=== PATIENT | female | born 1995 | race Caucasian/White ===

== ENCOUNTER 2016-11-02 09:27 | Inpatient (IN) | payer OTHER ==
[~2016-11-02] VITALS: Ht 170.2 cm; Wt 56.7 kg
--- NOTE | 2016-11-03 20:50 | NUR ---
Pre-admission assessment Pre-admission assessment done at intake by Perri MARSH. Pt reported the following substance use: 1) Heroin-per pt, she started using at age 14 via smoke and shifted to using via IV by age 16. Currently, for the past 4 months, pt reports using 1.5-2 gms via IV daily. Last use was 11/03/2016 at 1700. 2) Methadone-per pt, she started using 9 days ago via PO daily for 8 days. Last use was 11/02/2016 at 0800. 3) Crystal Meth-per pt, she started using 2 weeks ago via smoke and IV. Pt reports using 0.5-1 gm via smoke and IV daily. Last use was 11/02/2016 "all day". 4) Xanax-per pt, she started using at age 16 and has been using intermittently via PO. Pt reports last use of Xanax 4 mg PO on 11/02/2016 1300. Previous to this, pt reports that last use was "a month ago." Vital signs taken and as follows: MO=356/71, P=72, O2 sat on RA=99%, RR=16, T=98.1. Pt noted to have steady gait and is AAOx4. No SOB noted, not in respi distress. Pt with 2 home medications accounted for. Pt verbalized instructions and teachings regarding disposal of narcotic and other controlled home meds, unit protocols such as taking of vital signs Q4H and handling and disposal of contraband.
[2016-11-03 21:11] LABS: *URINE HCG, QUAL NEGATIVE (NEGATIVE)
[2016-11-03 21:20] LABS: *AMPHETAMINE, URINE NEGATIVE (NEGATIVE); *BARBITURATE, URINE NEGATIVE (NEGATIVE); *CANNABINOID, URINE NEGATIVE (NEGATIVE); *COCCAINE, URINE NEGATIVE (NEGATIVE); *OPIATE, URINE POSITIVE (NEGATIVE); *PHENCYCLIDINE SCREEN,URINE NEGATIVE (NEGATIVE)
--- NOTE | 2016-11-03 21:30 | NUR ---
ADMISSION Patient is a 21-year old, female, admitted and escorted by [facility] at 2120 to unit. Patient lives with a friend in [place] prior to coming to [facility]. Skin check done, no open skin noted. No edema noted. Pt is ambulatory with steady gait. Pt stands 5'7" and weighs 125 pounds per standing scale. Vital signs are as follows: BP-108/68, T-97.9, P-68, RR-18 and SPO2 on RA=99%. Patient is AAOx4 and with no anxiety noted at this time. Lung sounds clear bilaterally upon auscultation. No cough noted and bowel sounds are present on all quadrants. PERRLA and pupils are 1 mm upon visual check. Pt reports NKA, on Regular Diet and is Full Code. Pt denies any seizure history. Per pt, withdrawal symptoms are nausea and vomiting, insomnia, sweats, chills, tremors, hot flushes, anxiety, flushed skin, restless legs and goosebumps. Substance history as follows: 1) Heroin-per pt, she started using at age 14 via smoke and shifted to using via IV by age 16. Currently, for the past 4 months, pt reports using 1.5-2 gms via IV daily. Last use was 11/03/2016 at 1700. 2) Methadone-per pt, she started using 9 days ago via PO daily for 8 days. Last use was 11/02/2016 at 0800. 3) Crystal Meth-per pt, she started using 2 weeks ago via smoke and IV. Pt reports using 0.5-1 gm via smoke and IV daily. Last use was 11/02/2016 "all day". 4) Xanax-per pt, she started using at age 16 and has been using intermittently via PO. Pt reports last use of Xanax 4 mg PO on 11/02/2016 1300. Previous to this, pt reports that last use was "a month ago." Patient verbalized the she does not drink alcohol. Longest sobriety per pt is 5 months, from December to June 2016. 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 No Suicidal Ideation nor Homicidal Ideation reported. Per pt, PCP is Dr. Maxwell. Home medications mentioned were reconciled. Treatment history as follows: 1) Promises 08/2016-30 days 2) Unable to recall name in [facility]- 2014 3) Unable to recall name is [place]- 2012 Patient reports smoking cigarettes about 1 pack daily. Oriented patient to room and instructed with the use of the call light, placed within reach. Fall, universal, seizure and safety precautions implemented. Kept patient warm, dry and comfortable. No c/o significant pain at this time All needs met. Information relayed to Dr. Waite. Patient refused Flu and Pneumonia vaccines despite explanation of risks and benefits. COWS=11, CIWA=12. Will continue to monitor.
[2016-11-03 22:00] VITALS: BP 108/68
[2016-11-03] MEDS ORDERED: IBUPROFEN 400 MG TABLET PO PRN (22:30)
[2016-11-03] MEDS ORDERED: IBUPROFEN 400 MG TABLET ONE (22:41)
--- NOTE | 2016-11-03 23:00 | NUR ---
RN note PRN Motrin Pt c/o headache=5/10. Administered Motrin 400 mg PO as ordered. Will reassess.
[2016-11-04] VITALS: BP 103/60
[2016-11-04] MEDS ORDERED: MAGNESIUM HYDROXIDE 30 ML LIQUID UDC PO PRN
[2016-11-04] MEDS ORDERED: ACETAMINOPHEN 325 MG TABLET PO PRN
[2016-11-04] MEDS ORDERED: ONDANSETRON ODT 4 MG TAB.RAPDIS SL PRN
[2016-11-04] MEDS ORDERED: diphenhydrAMINE 50 MG CAPSULE PO PRN
[2016-11-04] MEDS ORDERED: HYDROXYZINE PAMOATE 25 MG CAPSULE PO PRN
[2016-11-04] MEDS ORDERED: LOPERAMIDE HCL 2 MG CAPSULE PO PRN ×2
[2016-11-04] MEDS ORDERED: LORAZEPAM 1 MG TABLET PO PRN
[2016-11-04] MEDS ORDERED: DICYCLOMINE HCL 20 MG TABLET PO PRN
[2016-11-04] MEDS ORDERED: PROMETHAZINE HCL 25 MG/1 ML VIAL IM PRN
[2016-11-04] MEDS ORDERED: MIRALAX 17 GM POWD.PACK PO PRN
[2016-11-04] MEDS ORDERED: MAG HYDROX/AL HYDROX/SIMETH 30 ML LIQUID UDC PO PRN
[2016-11-04] MEDS ORDERED: IBUPROFEN 400 MG TABLET PO PRN
[2016-11-04] MEDS ORDERED: CLONIDINE HCL 0.1 MG TABLET PO PRN
[2016-11-04] MEDS ORDERED: MAGNESIUM HYDROXIDE 30 ML LIQUID UDC ONE (00:07)
[2016-11-04] MEDS ORDERED: LORAZEPAM 1 MG TABLET ONE (00:07)
[2016-11-04] MEDS ORDERED: METHOCARBAMOL 750 MG TABLET ONE (00:07)
[2016-11-04] MEDS: METHOCARBAMOL 750 MG TABLET PO PRN ×2 (00:11→20:53)
--- NOTE | 2016-11-04 00:13 | NUR ---
RN note PRN Ativan, Robaxin and MOM Pt c/o feeling anxious, with irritability and tremors noted. CIWA=12. Pulse=92, DA=890/85. Administered Ativan 2 mg PO as ordered. Pt c/o generalized muscle pain=6/10. Administered Robaxin 750 mg PO. Pt c/o constipation. Last BM was 11/01/2016. Administered MOM 30 ml PO. Will monitor and reassess.
--- NOTE | 2016-11-04 00:16 | NUR ---
RN note reassess Pt verbalized headache=2/10. Motrin effective.
--- NOTE | 2016-11-04 01:15 | NUR ---
RN note Pt asleep on bed, no facial grimacing nor SOB noted. No tremors noted at this time.
[2016-11-04 04:00] VITALS: BP 120/64
[2016-11-04] MEDS ORDERED: [UNRECOGNIZED DRUG - CODE] PO (06:09)
[2016-11-04] MEDS ORDERED: [UNRECOGNIZED DRUG - CODE] PO (06:09)
--- NOTE | 2016-11-04 07:04 | NUR ---
End of Shift Patient is a 21-year old, female, admitted for Heroin, Methadone and Crystal Methamphetamine Dependence. Pt reports PMHx of Anxiety, Heroin Overdose in June of 2016, HPV (2012)-dormant per last Pap Smear in July of 2016 and Low Back Pain d/t fracture from Gymnastics when pt was 14 yrs old. Pt reports NKA, on Regular Diet and is Full Code. Pt denies any seizure history. On PRN meds. Dr. Lorenz to re-evaluate pt this morning. Pt is AAOx4, no anxiety nor SOB noted at this time. Pt is ambulatory with steady gait. No open skin noted. Fall, universal and safety prec in place. Call light within reach. Kept pt warm, dry and comfortable. All needs met. Latest COWS=5, CIWA=4, slept for 4 hours. Endorsed to AM shift nurse for continuity of care.
--- NOTE | 2016-11-04 07:10 | NUR ---
Start Of Shift Patient is a 21 year old, female, admitted for Heroin, Methadone and Crystal Methamphetamine Dependence. Pt is full code regular diet continues on fall and seizure precautions denies any food or drug allergies. Pt reports PMHx of Anxiety, Heroin Overdose in June of 2016, HPV (2012). Pt is not on a taper but is on PRN medications in case of withdrawal symptoms. Encouraged fluids to facilitate Detox. Pt reported feeling constipated, and stated that she did not have a good night sleep last night. Pt recieved PRN MOM Robaxin, and Ativan 2 mg last night, medication was effective. Her latest COWS=5, CIWA=4, pt slept for 4 hours. All safety measures in place call light within reach will continue to monitor and provide care.
[2016-11-04] MEDS ORDERED: ONDANSETRON 4 MG/2 ML VIAL IM PRN (07:15)
[2016-11-04 08:00] VITALS: BP 118/68
[2016-11-04] MEDS ORDERED: TUBERCULIN,PURIF.PROT.DERIV. 5 TU/0.1 ML TEST ID ONE (09:00)
[2016-11-04] MEDS: MULTIVITAMINS,THERAPEUTIC TABLET PO SCH (09:00)
--- NOTE | 2016-11-04 10:07 | NUR ---
PRN MEDICATION Pt c/o Anxiety presented with agitation and restlessness pt also complained of constipation requested something for relief, non-pharmacological techniques interventions provided x3 and were not effective. PRN Clonidine 0.1mg and Miralax administered PO, educated pt about s/e of medication and when to contact nurse. all needs met, all safety measures in place, will continue to monitor.
--- NOTE | 2016-11-04 11:07 | NUR ---
PRN REASSESSMENT Medication effective Pt reported decreased anxiety, pt has not had a bowel movement yet, will continue to monitor and provide care
[2016-11-04] MEDS ORDERED: LORAZEPAM 1 MG TABLET PO ONE ×2 (11:30→16:45)
[2016-11-04 12:00] VITALS: BP 96/66
[2016-11-04] MEDS ORDERED: [UNRECOGNIZED DRUG - OTHER] PO PRN (13:15)
[2016-11-04] MEDS ORDERED: Medication Not On Formulary EA (Doxycycline Hyclate 100 MG) PO SCH (13:15)
[2016-11-04] MEDS: DOXYCYCLINE HYCLATE 100 MG TABLET PO SCH ×2 (13:30→20:36)
[2016-11-04 16:00] VITALS: BP 109/60
--- NOTE | 2016-11-04 16:37 | NUR ---
MD COMMUNICATION Pt c/o severe anxiety CIWA score of 8 pt presented with chills, sweats, anxiety, agitation and tremors, MD gave order for a onetime Ativan 2mg, all needs met will carryout order.
[2016-11-04] MEDS ORDERED: BUPRENORPHINE HCL 2 MG TAB.SUBL SL PRN (19:30)
--- NOTE | 2016-11-04 19:35 | NUR ---
End Of Shift Patient is a 21 year old, female, admitted for Heroin, Methadone and Crystal Methamphetamine Dependence. Pt is full code regular diet continues on fall and seizure precautions denies any food or drug allergies. Pt is not on a taper but is on PRN medications in case of withdrawal symptoms. Upon assessment patient presented with dilated pupils, stomach cramps, mild anxiety, agitation, sweats with her last COWS score being a 8 @1600. Pt was given PRN Clonidine and Miralax for anxiety and constipation, medication was effective. Pt received a onetime dose of Ativan 2mg X2 per MD order. Patient encouraged adequate PO fluid intake as tolerated. Detox medication effective at reducing withdrawal symptoms. Patient encouraged to attend group therapies/sessions to learn new coping skills to recent relapse, noted attending and participating in groups and activities, patient denies SI/HI. Pt ate all of her meals his total fluid intake was 2350 with 3 void and no bowel movement, Safety measures in place. Call light kept within reach. Patient endorsed to night auditor nurse, all pertinent information discussed with night auditor nurse.
[2016-11-04 20:00] VITALS: BP 109/67
--- NOTE | 2016-11-04 20:00 | NUR ---
START OF SHIFT NOTE RECEIVED PATIENT IN ROOM. PATIENT IN BED, REPORTS NOT FEELING GOOD. PATIENT STATES SHE'S ANXIOUS, SWEATING, TEARY EYES, ABDOMINAL CRAMPING , NAUSEA BUT NO EMESIS , BACK PAIN 7/10, STUFFY NOSE, HOT AND COLD. NO APPETITE AND DID NOT GO TO GROUPS. RECEIVED REPORT FROM DAY SHIFT NURSE. PATIENT IS A 21 YEAR OLD FEMALE, ADMITTED FOR HEROIN AND METHADONE DEPENDENCE. PATIENT NOT YET ON TAPER. PATIENT IS FULL CODE, REGULAR DIET AND NO KNOWN ALLERGY. PATIENT REPORTS PMH OF LOWER BACK PAIN -D/T FRACTURE (14 YEARS OLD) ,HPV (2012)-DORMANT FROM LAST PAP SMEAR (07/2016(, ANXIETY AND HEROIN OVERDOSE (06/2016). PATIENT ON ANTIBIOTIC FOR ACNE, ENCOURAGE FLUIDS . PATIENT IS ON FALL PRECAUTION. PATIENT WAS GIVEN ONE TIME ATIVAN X 2 DOSES , PRN CLONIDINE AND MIRALAX. LAST COWS 8. SAFETY MEASURES IN PLACE . CALL LIGHT IN REACH. WILL CONTINUE TO MONITOR.
--- NOTE | 2016-11-04 20:36 | NUR ---
ONE TIME SUBUTEX ADMINISTRATION PATIENT REPORTS ANXIETY, SWEATING, STUFFY NOSE, ABDOMINAL CRAMPING, TEART EYES, HOT AND COLD AND NAUSEA BUT NO EMESIS. COWS 13. DR. VAN WAS NOTIFIED AND MADE NEW ORDER FOR ONE TIME SUBUTEX. WILL START SUBUTEX TAPER TOMORROW. PRN SUBUTEX GIVEN. WILL MONITOR FOR EFFECTIVENESS
--- NOTE | 2016-11-04 20:53 | NUR ---
PRN ROBAXIN ADMINISTRATION PATIENT C/O GENERALIZED BODY ACHES. PRN ROBAXIN GIVEN. WILL MONITOR FOR EFFECTIVENESS
--- NOTE | 2016-11-04 21:06 | NUR ---
GEORGETTEN SUBUTEX RE-ASSESSMENT PATIENT STATES SUBUTEX IS HELPFUL . ANXIETY , SWEATING ,SUBSIDED. COWS ASSESSMENT 4 AT THIS TIME. WILL CONTINUE TO MONITOR. Addendum: 11/05/16 at 0601 by DARREN TAMEZ LVN CLARIFICATION: ONE TIME SUBUTEX RE-ASSESSMENT
--- NOTE | 2016-11-04 21:53 | NUR ---
PRN ROBAXIN RE-ASSESSMENT PATIENT STATES ROBAXIN HELPFUL. PAIN LEVEL 2/10, TOLERABLE. WILL CONTINUE TO MONITOR
[2016-11-05 03:00] VITALS: BP 99/60
[2016-11-05 04:00] VITALS: BP 96/55
--- NOTE | 2016-11-05 07:36 | NUR ---
END OF SHIFT NOTE MONITORED PATIENT THROUGHOUT THE NIGHT. PATIENT STABLE . PATIENT REPORTED NOT FEELING GOOD. PATIENT STATES SHE'S ANXIOUS, SWEATING, TEARY EYES, ABDOMINAL CRAMPING , NAUSEA BUT NO EMESIS , BACK PAIN 7/10, STUFFY NOSE, HOT AND COLD. DURING SHIFT. NO APPETITE AND DID NOT GO TO GROUPS. PATIENT IS HERE FOR HEROIN AND METHADONE DEPENDENCE. PATIENT ON ANTIBIOTIC FOR ACNE, ENCOURAGE FLUIDS . PATIENT WAS GIVEN ONE TIME SUBUTEX AT 2035 , COWS 13, EFFECTIVE COWS DOWN TO 4. PRN ROBAXIN GIVEN AT 2052, EFFECTIVE. PATIENT WILL BE STARTED ON 5 DAYS SUBUTEX TAPER TODAY. PATIENT IS ON FALL PRECAUTION. SAFETY MEASURES IN PLACE . CALL LIGHT IN REACH. WILL CONTINUE TO MONITOR. SLEPT 6 HOURS. FLUID INTAKE 437 ML. VOIDED X 0. NO BM. LAST COWS 1.
--- NOTE | 2016-11-05 07:50 | NUR ---
Start Of Shift Patient is a 21 year old, female, admitted for Heroin, Methadone and Crystal Methamphetamine Dependence. Pt is full code regular diet continues on fall and seizure precautions denies any food or drug allergies. Pt began her 5 day Subutex taper today. Encouraged fluids to facilitate Detox. Pt received PRN Robaxin and a onetime dose of Subutex, all medications were effective per third shift lieutenant nurse. Encouraged fluids to facilitate with detox. Pt A&Ox4 with even unlabored respirations at 18. Pt reported feeling fatigued this morning c/o sweats and minor anxiety. Pts Last COWS=1 at 04:00. Pt slept a total of 6 hours at night. All safety measures in place call light within reach will continue to monitor and provide care.
[2016-11-05 08:00] VITALS: BP 103/64
[2016-11-05] MEDS ORDERED: 5 DAY TAPER BUPRENORPHINE -SERENITY PROTOCOL SL PRN (09:00)
[2016-11-05] MEDS: MULTIVITAMINS,THERAPEUTIC TABLET PO SCH (09:01)
[2016-11-05] MEDS: DOXYCYCLINE HYCLATE 100 MG TABLET PO SCH ×2 (09:01→21:01)
[2016-11-05] MEDS: BUPRENORPHINE HCL 2 MG TAB.SUBL SL SCH ×4 (09:01→21:03)
[2016-11-05] MEDS: METHOCARBAMOL 750 MG TABLET PO PRN ×2 (11:13→21:02)
--- NOTE | 2016-11-05 11:13 | NUR ---
PRN MEDICATION Pt c/o Anxiety presented with agitation and restlessness pt also complained of generalized pain rating it 4/10 requested something for relief, non-pharmacological techniques interventions provided x3 and were not effective. PRN Robaxin 750mg administered PO, educated pt about s/e of medication and when to contact nurse. all needs met, all safety measures in place, will continue to monitor.
[2016-11-05 12:00] VITALS: BP 115/77
--- NOTE | 2016-11-05 12:13 | NUR ---
PRN REASSESSMENT Upon reassessment medication noted to be effective pt reported a decrease in pain to 1/10. Instructed pt to contact nurse if pain reoccurred. All needs met, all safety measures in place will continue to monitor.
[2016-11-05 16:00] VITALS: BP 112/61
--- NOTE | 2016-11-05 19:21 | NUR ---
End Of Shift Patient is a 21 year old, female, admitted for Heroin, Methadone and Crystal Methamphetamine Dependence. Pt is full code regular diet continues on fall and seizure precautions denies any food or drug allergies. Pt is on a 5 day Subutex taper tolerating well. Upon assessment patient presented with dilated pupils, stomach cramps, mild anxiety, agitation, sweats with her last COWS score being a 5 @1600. Pt was given PRN Robaxin 750mg medication was effective. Patient encouraged adequate PO fluid intake as tolerated. Detox medication effective at reducing withdrawal symptoms. Patient encouraged to attend group therapies/sessions to learn new coping skills to recent relapse, noted attending and participating in groups and activities, patient denies SI/HI. Pt ate all of her meals his total fluid intake was 2855 with 4 void and 1 bowel movement, Safety measures in place. Call light kept within reach. Patient endorsed to field sales trainer nurse, all pertinent information discussed with field sales trainer nurse.
[2016-11-05 20:00] VITALS: BP 114/66
--- NOTE | 2016-11-05 20:00 | NUR ---
START OF SHIFT NOTE PATIENT IN HER ROOM. PATIENT ALERT AND ORIENTED X 4. RESPIRATION EVEN UNLABORED. PATIENT REPORTS ANXIETY, NAUSEA AND VOMITING X 1. SWEATING, STUFFY NOSE, ABDOMINAL CRAMPING AND NO APPETITE. PATIENT C/O 8/10 GENERALIZED BODY ACHES , PATIENT REFUSED ZOFRAN . PATIENT EDUCATE ON RISKS/BENEFITS. RECEIVED REPORT FROM DAY SHIFT NURSE. PATIENT IS A 21 YEAR OLD FEMALE, ADMITTED FOR HEROIN.METHADONE DEPENDENCE. PATIENT IS ON 1ST DAY OF HER 5 DAY SUBUTEX TAPER. PATIENT IS FULL CODE, REGULAR DIET AND NO KNOWN ALLERGY. PATIENT REPORTS PMH OF LOWER BACK PAIN -D/T FRACTURE (14 DAYS Y/O) , HPV (2012)-DORMANT FROM LAST PAP SMEAR (07/2016) , ANXIETY AND HEROIN OD (06/2016). PATIENT ON FALL PRECAUTION. PATIENT WAS GIVEN PRN ROBAXIN DURING THE DAY. LAST COWS 5. CONTINUE ON ANTIBIOTIC THERAPY. SAFETY MEASURES IN PLACE. CALL LIGHT IN REACH. WILL CONTINUE TO MONITOR.
--- NOTE | 2016-11-05 21:02 | NUR ---
PRN ROBAXIN ADMINISTRATION PATIENT C/O GENERALIZED BODY AHCES 12/10. PRN ROBAXIN GIVEN. WILL MONITOR FOR EFFECTIVESS
--- NOTE | 2016-11-05 22:02 | NUR ---
DAGO BAKER RE-ASSESSMENT PATIENT'S PAIN LEVEL IS NOW 3, PAIN TOLERABLE AND IT'S GETTING BETTER PER PATIENT . WILL CONTINUE TO MONITOR.
[2016-11-06] VITALS: BP 114/66
[2016-11-06 04:00] VITALS: BP 94/56
--- NOTE | 2016-11-06 07:04 | NUR ---
Start of Shift Endorsement received from nightshift nurse. Pt is a 21 y/o female admitted for Heroin and methadone dependence. Pt has been placed on a 5 day Subutex taper. Pt is tolerating the taper well AEB COWS 1. Pt received PRN Robaxin for back spasms and back pain. PT reports sleeping 4 hours and reports feeling tired. VS WNL, Full Code. . PT is alert and oriented x4. Pt is in STABLE condition at this time. Remains compliant with medication and diet regimen. All needs have been met, All safety measures in place per hospital policy. Bed in lowest position, side rails up x2, call-light within reach. Will continue to monitor
--- NOTE | 2016-11-06 07:27 | NUR ---
END OF SHIFT NOTE PATIENT REMAIN ALERT AND ORIENTED X 4. RESPIRATION EVEN UNLABORED. PATIENT REPORTED ANXIETY, NAUSEA AND VOMITING X 1. SWEATING, STUFFY NOSE, ABDOMINAL CRAMPING AND NO APPETITE DURING SHIFT. PATIENT C/O 8/10 GENERALIZED BODY ACHES . PATIENT REFUSED ZOFRAN . PATIENT EDUCATE ON RISKS/BENEFITS. RECEIVED PATIENT IS ADMITTED FOR HEROIN.METHADONE DEPENDENCE. PATIENT IS ON 1ST DAY OF HER 5 DAY SUBUTEX TAPER, TOLERATED WELL. NO ADVERSE REACTION. PATIENT IS FULL CODE, REGULAR DIET AND NO KNOWN ALLERGY. PATIENT REPORTS PMH OF LOWER BACK PAIN -D/T FRACTURE (14 DAYS Y/O) , HPV (2012)-DORMANT FROM LAST PAP SMEAR (07/2016) , ANXIETY AND HEROIN OD (06/2016). PATIENT COMPLIANT WITH MEDICATION AND TREATMENT PLAN. PATIENT ON FALL PRECAUTION. PATIENT WAS GIVEN PRN ROBAXIN AT 2102 ,DURING SHIFT, EFFECTIVE. CONTINUE ON ANTIBIOTIC THERAPY. SAFETY MEASURES IN PLACE. CALL LIGHT IN REACH. WILL CONTINUE TO MONITOR. SLEPT 4 HOURS. FLUID INTAKE 2,006 ML. VOIDED X. 2 . NO BM. LAST COWS 1.
[2016-11-06 08:00] VITALS: BP 94/60
[2016-11-06] MEDS: BUPRENORPHINE HCL 2 MG TAB.SUBL SL SCH ×3 (09:11→21:16)
[2016-11-06] MEDS: DOXYCYCLINE HYCLATE 100 MG TABLET PO SCH ×2 (09:11→21:15)
[2016-11-06] MEDS: MULTIVITAMINS,THERAPEUTIC TABLET PO SCH (09:11)
[2016-11-06 12:00] VITALS: BP 99/63
[2016-11-06] MEDS ORDERED: MAGNESIUM CITRATE 296 ML BOTTLE PO ONE (12:00)
[2016-11-06 16:00] VITALS: BP 108/66
--- NOTE | 2016-11-06 17:18 | NUR ---
PRN Robaxin Administered PRN Robaxin for 5/10 back pain. Will re-assess.
[2016-11-06] MEDS: METHOCARBAMOL 750 MG TABLET PO PRN (17:19)
--- NOTE | 2016-11-06 18:05 | NUR ---
Medication re-assessment Pt reports relief from pain, reports 1/10 pain at this time. MEdication was effective.
--- NOTE | 2016-11-06 19:27 | NUR ---
End of Shift Endorsement given to nightshift nurse. Pt is a 21 y/o female admitted for Heroin and methadone dependence. Pt has been placed on a 5 day Subutex taper. Pt is tolerating the taper well AEB COWS 3. Pt received PRN Robaxin for back pain and Magnesium Citrate for constipation. PT reports having a BM at 1800, medication was effective. Educated Pt on S/E of medications and diet regimen. VS WNL, Full Code. Intake: 1500ml, Void x4, BM x2. Encouraged pt to drink more fluids and participate in groups. Pt attended group and activities. PT is alert and oriented x4. Pt is in STABLE condition at this time. Remains compliant with medication and diet regimen. All needs have been met, All safety measures in place per hospital policy. Bed in lowest position, side rails up x2, call-light within reach. Will continue to monitor
--- NOTE | 2016-11-06 19:30 | NUR ---
START OF SHIFT Pt is a 21 y/o female admitted for Heroin and methadone dependence. Pt has been placed on a 5 day Subutex taper. Pt is tolerating the taper well .Last COWS 3. V/S WNL, Full Code. Pt A/O X 4. Pt is in stable condition at this time. Remains compliant with medication and diet regimen. All needs have been met, All safety measures in place per hospital policy. Bed in lowest position, side rails up x2, call-light within reach. Will continue to monitor.
[2016-11-06 20:00] VITALS: BP 114/71
[2016-11-06] MEDS ORDERED: SENNOSIDES 1 TABLET PO SCH (21:00)
[2016-11-07] VITALS: BP 103/60
[2016-11-07 04:00] VITALS: BP 94/56
--- NOTE | 2016-11-07 06:51 | NUR ---
END OF SHIFT Pt is a 21 y/o female admitted for Heroin and methadone dependence. Pt has been placed on a 5 day Subutex taper. Pt is tolerating the taper well .Last COWS 3. V/S WNL, Full Code. Pt A/O X 4. Pt is in stable condition at this time. Remains compliant with medication and diet regimen. All needs have been met,No PRN meds given last night;Pt slept 5 hrs,fluid intake was 1765 mls,voided x 1 . All safety measures in place per hospital policy. Bed in lowest position, side rails up x2, call-light within reach. Will continue to monitor.
--- NOTE | 2016-11-07 07:15 | NUR ---
Start of Shift Endorsement received from nightshift nurse. Pt is a 21 y/o female admitted for Heroin and methadone dependence. Pt has been placed on a 5 day Subutex taper. Pt is tolerating the taper well AEB COWS 3. Pt did not receive any PRN medications. PT reports sleeping 7 hours. Pt reports readiness for sobriety and discharge. VS WNL, Full Code. . PT is alert and oriented x4. Pt is in STABLE condition at this time. Remains compliant with medication and diet regimen. All needs have been met, All safety measures in place per hospital policy. Bed in lowest position, side rails up x2, call-light within reach. Will continue to monitor
[2016-11-07 08:00] VITALS: BP 90/52
[2016-11-07] MEDS ORDERED: BUPRENORPHINE HCL 2 MG TAB.SUBL SL SCH ×2 (09:00→15:00)
[2016-11-07] MEDS: MULTIVITAMINS,THERAPEUTIC TABLET PO SCH (09:20)
[2016-11-07] MEDS: DOXYCYCLINE HYCLATE 100 MG TABLET PO SCH (09:20)
[2016-11-07 12:00] VITALS: BP 117/75
--- NOTE | 2016-11-07 14:53 | NUR ---
AMA NOTE Pt reports that she wants to leave AMA due to not wanting to be here and wants to get "high". Pt educated about the risks and consequences of leaving AMA, pt verbalized understanding but still requested to leave. Multiple staff members spoke with pt without any success. VS are WNL, pt denies any suicidal/homicidal ideations, skin intact, Dr. Waite has been notified. Pt was given a list of community resources in case she is in need of help. All belongings returned to pt. Pt left the facility on 11/07/16 at 1453.
[2016-11-08] MEDS ORDERED: BUPRENORPHINE HCL 2 MG TAB.SUBL SL SCH (09:00)
[2016-11-09] MEDS ORDERED: BUPRENORPHINE HCL 2 MG TAB.SUBL SL SCH (09:00)
== END 2016-11-07 14:53 | disposition left against medical advice (07) | DRG 894 ==
LOC: SRC 11-03 19:47
PROVIDERS: ADMIT Internal Medicine; ATTEND Internal Medicine
PROC: HZ2ZZZZ Detoxification Services for Substance Abuse Treatment (ICD-10-PCS; principal; 2016-11-03)
PROC: HZ31ZZZ Individual Counseling for Substance Abuse Treatment, Behavioral (ICD-10-PCS; 2016-11-05)
DX: F11.23 Opioid dependence with withdrawal (principal); F13.20 Sedative, hypnotic or anxiolytic dependence, uncomplicated; Z59.0 Homelessness; F15.10 Other stimulant abuse, uncomplicated; K59.00 Constipation, unspecified; F17.210 Nicotine dependence, cigarettes, uncomplicated
CPT/HCPCS: 80307; 80361; 84703; 86580; A4663